=== PATIENT | female | born 1950 | race Caucasian/White ===

== ENCOUNTER → 2023-07-18 | Outpatient (CLI) | payer MEDICARE, MEDICAID ==
[~2023-07-18] MED LIST: ACCUPRIL10 M1 PO; ACCUPRIL20TAB PO; AMBIEN 10MG10 MG PO; AMBIEN 5MG TABLE5 MG PO; AMOXICILLIN 50500 MG; ASPI325T6 PO; ASPIRIN 81M81 MG/TA2 PO; ASPIRIN E.C. 8181 MG PO; ATIVAN 0.50.5 MG/TAB PO; BIAXIN 500MG T500 MG PO; CARAFATE 1GM1 G PO; CIPRO 500MG TA500 MG PO; DESYREL 50MG50 MG PO; DUO-KAPS1 CAP PO; GLUCOPHAGE500 MG/TAB PO; HCTZ 25MG TAB25 MG PO; IBU800 M1 PO; LANTUS100 U/ML SC; LEADER NATUR1000 MCG PO; LEVEMIR100 U/ML SC; LIPITOR 40MG TA40 MG PO; LYRICA 75MG CAP75 MG PO; MIRALAX PA17 GM/Dose PO; MIRALAX119G PO; NAPROSYN500 MG PO; NEURONTIN300 MG/CAP PO; NEXIUM 40MG40 MG PO; NORCO 325 MG-51 TAB PO; NORVASC 10MG10 MG PO; NORVASC 5MG5 MG/TAB PO; NOVOLOG 100U100 U/M1 SC; NOVOLOG 100U100 U/M1 SQ; OSCAL 500 TAB500 MG PO; PERCOCET 325 MG1 TA2 PO; PREDNISONE20 MG PO; PREPH RC; PRILOSEC 20MG20 MG PO; PRINIVIL20 MG PO; PRINZIDE 12.5 M1 TAB PO; PROTONIX 40MG T40 MG PO; RANEXA 500MG T500 MG PO; ROXICODONE 55 MG/TAB PO; SYNTHROID0.05 MG/TA PO; SYNTHROID0.2 MG/TAB PO; TRULICITY0.75 MG/0. SQ; TUCKS; TYLENOL; TYLENOL 500MG500 MG PO; TYLENOL W/COD1 UDTAB PO; ULTRAM 50MG TAB50 MG PO; VALTREX1 GM PO; VITAMIN C500 MG PO; VITAMIN D 50,1.25 MG PO; VITAMIN D31000 IU PO; ZOFRAN 4MG T4 MG/TAB PO; ZOFRAN ODT4 MG PO; ZOLOFT 25MG25 MG PO
== END ==
LOC: COL.RAD 11:19
DX: R60.0 Localized edema (principal)

== ENCOUNTER 2023-10-14 16:33 | Emergency (ER) | payer MEDICARE, MEDICAID ==
[2023-10-14 19:44] VITALS: TEMP 98
[2023-10-14 20:20] VITALS: BP 119/72; PULSE 87
== END 2023-10-14 20:20 | disposition home or self-care (01) ==
LOC: COL.ER 16:33
DX: S83.91XA Sprain of unspecified site of right knee, initial encounter (principal); S70.01XA Contusion of right hip, initial encounter; W07.XXXA Fall from chair, initial encounter; Y92.129 Unspecified place in nursing home as the place of occurrence of the external cause